=== PATIENT | female | born 1985 | race Hispanic/Latino ===

== ENCOUNTER → 2022-07-23 | Outpatient (CLI) | payer MEDICAID ==
[2022-07-23 13:21] LABS: CREATININE 0.8 mg/dL (0.5-1.5)
== END | disposition home or self-care (01) ==
LOC: LAB 12:04
PROVIDERS: ATTEND Otolaryngology Plastic Surgery within the Head & Neck
DX: G96.9 Disorder of central nervous system, unspecified (principal); J38.3 Other diseases of vocal cords
CPT/HCPCS: 36415; 82565; 84520

== ENCOUNTER → 2022-07-24 | Outpatient (CLI) | payer MEDICAID ==
[~2022-07-24] MED LIST: GADOTERATE MEGLUMINE 5 MMOL/10 ML VIAL IV ONE
== END | disposition home or self-care (01) ==
LOC: RAH 10:56
PROVIDERS: ATTEND Otolaryngology Plastic Surgery within the Head & Neck
DX: N83.292 Other ovarian cyst, left side (principal); G96.9 Disorder of central nervous system, unspecified; J38.2 Nodules of vocal cords
CPT/HCPCS: 70490; 71045